=== PATIENT | female | born 1985 | race Caucasian/White ===

== ENCOUNTER 2017-10-26 13:45 | Emergency (ER) | payer OTHER ==
[~2017-10-26] VITALS: Ht 162.6 cm; Wt 112.1 kg
[2017-10-26 14:34] LABS: BASO % 1 % (0-3); EOS % 1 % (0-3); HEMATOCRIT 37.8 % (36.0-47.0); HEMOGLOBIN 12.3 g/dL (12.0-15.5); LYMPH # 1.2 x10^3/uL (1.0-4.8); LYMPH % 29 % (24-48); MEAN CORPUSCULAR HEMOGLOBIN 28 pg (25-35); MEAN CORPUSCULAR HGB CONC 33 g/dL (31-37); MEAN CORPUSCULAR VOLUME 86 fL (79-100); MONO % 11 % (0-9); NEUT % 58 % (31-73); PLATELET COUNT 228 x10^3/uL (140-400); RED BLOOD COUNT 4.41 x10^6/uL (3.50-5.40)
[2017-10-26 14:51] LABS: NEG OBC SER NEG; POS OBC SER POS
[2017-10-26 15:01] LABS: CREATININE 0.7 mg/dL (0.6-1.0); POTASSIUM 3.6 mmol/L (3.5-5.1)
[2017-10-26 15:07] LABS: ALBUMIN 3.4 g/dL (3.4-5.0); ALBUMIN/GLOBULIN RATIO 0.9 (1.0-1.7); TOTAL BILIRUBIN 0.1 mg/dL (0.2-1.0); TOTAL PROTEIN 7.3 g/dL (6.4-8.2)
[2017-10-26 15:30] VITALS: BP 110/68
[2017-10-26] MEDS ORDERED: IOHEXOL 300 MG/ML 100ML VIAL. IV ONE (15:45)
[2017-10-26] MEDS ORDERED: CONTRAST GIVEN MC PRN (15:45)
--- NOTE | 2017-10-26 15:53 | PHYS DOC ---
Past Medical History Past Medical History: Other Additional Past Medical Histor: morbid obesity Past Surgical History: Other Additional Past Surgical Histo: gastric bypass Alcohol Use: None Drug Use: None Adult General Chief Complaint Chief Complaint: ABDOMINAL PAIN HPI HPI Patient is a 32 year old female with history of gastric bypass 3 years ago presents with left upper quadrant abdominal pain over the area of surgical scar. Pain is sharp in is dependent upon position. Symptoms are worse when lying supine, coughing, bending over and lifting. Today while at work, the patient was bending over and felt sharp intense pain lasting for 20-30 minutes. Pain gradually improved prior to ED arrival. Patient denies nausea, vomiting, constipation or diarrhea. Patient has been evaluated by her primary care physician who told her she suspected hernia. Patient has not yet followed up with her surgeon. Patient also reports recent nasal congestion. Patient denies shortness of breath, fever chills. No acute symptoms or complaints. [] Review of Systems Review of Systems Review symptoms as per history of present illness. All other review symptoms are negative. All other systems were reviewed and found to be within normal limits, except as documented in this note. Current Medications Current Medications Current Medications Medications (Trade) Dose Ordered Sig/Paul Start Time Stop Time Status Last Admin Dose Admin Info (Do NOT chart on this entry -- for MONITORING) 1 each PRN DAILY PRN 10/26/17 15:45 10/28/17 15:44 Iohexol (Omnipaque 300 Mg/ml) 75 ml 1X ONCE 10/26/17 15:45 10/26/17 15:46 DC Allergies Allergies Allergies Coded Allergies Type Severity Reaction Last Updated Verified Penicillins Allergy Intermediate hives 10/26/17 Yes Physical Exam Physical Exam Constitutional: Well developed, well nourished, no acute distress, non-toxic appearance. [] HENT: Normocephalic, atraumatic, bilateral external ears normal, oropharynx moist, no oral exudates, nose normal. [] Eyes: PERRLA, EOMI, conjunctiva normal, no discharge. [] Neck: Normal range of motion, no tenderness, supple, no stridor. [] Cardiovascular:Heart rate regular rhythm, no murmur [] Lungs & Thorax: Bilateral breath sounds clear to auscultation [] Abdomen: Bowel sounds normal, soft, no tenderness, pain located over left upper quadrant surgical scar. No palpable hernia appreciated.[] Extremities: No tenderness, no cyanosis, no clubbing, ROM intact, no edema. [] Neurologic: Alert and oriented X 3, normal motor function, normal sensory function, no focal deficits noted. [] Psychologic: Affect normal, judgement normal, mood normal. [] Current Patient Data Vital Signs Vital Signs Date Time Temp Pulse Resp B/P (MAP) Pulse Ox O2 Delivery O2 Flow Rate FiO2 10/26/17 14:03 98.9 76 20 102/61 (75) 100 Room Air 98.9 Lab Values Laboratory Tests Test 10/26/17 14:18 White Blood Count 4.0 x10^3/uL (4.0-11.0) Red Blood Count 4.41 x10^6/uL (3.50-5.40) Hemoglobin 12.3 g/dL (12.0-15.5) Hematocrit 37.8 % (36.0-47.0) Mean Corpuscular Volume 86 fL (79-100) Mean Corpuscular Hemoglobin 28 pg (25-35) Mean Corpuscular Hemoglobin Concent 33 g/dL (31-37) Red Cell Distribution Width 14.0 % (11.5-14.5) Platelet Count 228 x10^3/uL (140-400) Neutrophils (%) (Auto) 58 % (31-73) Lymphocytes (%) (Auto) 29 % (24-48) Monocytes (%) (Auto) 11 % (0-9) H Eosinophils (%) (Auto) 1 % (0-3) Basophils (%) (Auto) 1 % (0-3) Neutrophils # (Auto) 2.3 x10^3uL (1.8-7.7) Lymphocytes # (Auto) 1.2 x10^3/uL (1.0-4.8) Monocytes # (Auto) 0.5 x10^3/uL (0.0-1.1) Eosinophils # (Auto) 0.0 x10^3/uL (0.0-0.7) Basophils # (Auto) 0.0 x10^3/uL (0.0-0.2) Sodium Level 140 mmol/L (136-145) Potassium Level 3.6 mmol/L (3.5-5.1) Chloride Level 103 mmol/L (98-107) Carbon Dioxide Level 24 mmol/L (21-32) Anion Gap 13 (6-14) Blood Urea Nitrogen 9 mg/dL (7-20) Creatinine 0.7 mg/dL (0.6-1.0) Estimated GFR (Cockcroft-Gault) 97.0 BUN/Creatinine Ratio 13 (6-20) Glucose Level 127 mg/dL (70-99) H Calcium Level 8.0 mg/dL (8.5-10.1) L Total Bilirubin 0.1 mg/dL (0.2-1.0) L Aspartate Amino Transferase (AST) 21 U/L (15-37) Alanine Aminotransferase (ALT) 21 U/L (14-59) Alkaline Phosphatase 76 U/L (46-116) Total Protein 7.3 g/dL (6.4-8.2) Albumin 3.4 g/dL (3.4-5.0) Albumin/Globulin Ratio 0.9 (1.0-1.7) L Serum Test, Qualitative Negative (NEG) Laboratory Tests 10/26/17 14:18 Laboratory Tests 10/26/17 14:18 EKG EKG [] Radiology/Procedures Radiology/Procedures [] Course & Med Decision Making Course & Med Decision Making Pertinent Labs and Imaging studies reviewed. (See chart for details) [No appreciated incarcerated hernia in the emergency department. Exam is benign on reevaluation. Pain resolved. Lab work reviewed. Suspect abdominal pain related to scar tissue versus hernia. Patient also has URI symptoms. Will treat with URI with instructions to follow-up with surgeon for repeat evaluation. Return precautions reviewed. Patient verbalizes understanding agreement discharge instructions prior to departure.] Dragon Disclaimer Dragon Disclaimer This electronic medical record was generated, in whole or in part, using a voice recognition dictation system. Departure Departure Impression: Primary Impression: Abdominal pain Additional Impression: Bronchitis Disposition: 01 HOME, SELF-CARE Condition: GOOD Patient Instructions: Bronchitis, [id number], Abdominal Pain (Nonspecific) Additional Instructions: You were evaluated in the emergency department for abdominal pain and cough. Lab work was performed and is nondiagnostic. Your abdominal pain may be caused from scar tissue or hernia related to previous surgery. Please take Tylenol for pain and follow-up with your surgeon who performed your gastric bypass. Take antibiotics as directed. In the meantime if you develop new or worsening symptoms, return to the ED. Scripts No Active Prescriptions or Reported Meds Problem Qualifiers NITIN PETER DO Oct 26, 2017 15:53
== END 2017-10-26 15:56 | disposition home or self-care (01) ==
LOC: ER 13:45
DX: J40 Bronchitis, not specified as acute or chronic (principal); R10.12 Left upper quadrant pain; Z98.84 Bariatric surgery status; Z88.0 Allergy status to penicillin; E66.01 Morbid (severe) obesity due to excess calories; Z68.41 Body mass index [BMI] 40.0-44.9, adult
CPT/HCPCS: 36415; 80053; 84703; 85025; 99284

== ENCOUNTER 2018-04-06 14:48 | Emergency (ER) | payer OTHER ==
[2018-04-07 11:48] LABS: NEGATIVE OBC STREP NEG; POSITIVE OBC STREP POS
== END 2018-04-06 15:51 | disposition home or self-care (01) ==
LOC: ER 14:48
DX: J02.0 Streptococcal pharyngitis (principal); Z88.0 Allergy status to penicillin
CPT/HCPCS: 87880; 99283

== ENCOUNTER → 2018-07-23 | Outpatient (CLI) | payer OTHER ==
[2018-04-06 15:02] VITALS: BP 135/74
[~2018-07-23] MED LIST: CEPH-264 PO
== END | disposition home or self-care (01) ==
LOC: LAB 13:52
PROVIDERS: ATTEND Physician Assistant
DX: O87.1 Deep phlebothrombosis in the puerperium (principal); E66.01 Morbid (severe) obesity due to excess calories; Z68.41 Body mass index [BMI] 40.0-44.9, adult; Z88.0 Allergy status to penicillin
CPT/HCPCS: 36415

== ENCOUNTER 2019-08-01 19:57 | Emergency (ER) | payer MEDICAID, OTHER ==
[~2019-08-01] VITALS: Ht 162.6 cm; Wt 111.1 kg
[2019-08-01 20:14] VITALS: BP 118/78
[2019-08-01] MEDS ORDERED: ACETAMINOPHEN 500 MG TABLET PO STA (20:31)
--- NOTE | 2019-08-01 20:38 | PHYS DOC ---
Past Medical History Past Medical History: No Pertinent History Additional Past Medical Histor: morbid obesity Past Surgical History: Gastric Bypass Additional Past Surgical Histo: gastric bypass Alcohol Use: None Drug Use: None Adult General Chief Complaint Chief Complaint: FOOT INJURY PAIN [facility] HPI Patient is a 34 year old female that presents with left foot pain and ankle pain has been ongoing for year but states is gotten worse lately. The patient states it swells and is painful after a long day. She states it throbs and her pain as 9 out of 10 in severity and sharp and throbbing. The patient states she took 500 mg Tylenol home before arrival. She has a history of gastric bypass is was unable to have ibuprofen. Review of Systems Review of Systems Constitutional: Denies fever or chills [] Eyes: Denies change in visual acuity, redness, or eye pain [] HENT: Denies nasal congestion or sore throat [] Respiratory: Denies cough or shortness of breath [] Cardiovascular: No additional information not addressed in HPI [] GI: Denies abdominal pain, nausea, vomiting, bloody stools or diarrhea [] : Denies dysuria or hematuria [] Musculoskeletal: Reports left foot and ankle pain. Integument: Denies rash or skin lesions [] Neurologic: Denies headache, focal weakness or sensory changes [] Endocrine: Denies polyuria or polydipsia [] Complete systems were reviewed and found to be within normal limits, except as documented in this note. Current Medications Current Medications Current Medications Medications (Trade) Dose Ordered Sig/Paul Start Time Stop Time Status Last Admin Dose Admin Acetaminophen (Tylenol) 500 mg 1X STAT 08/01/19 20:31 08/01/19 20:34 DC 08/01/19 20:47 500 MG Allergies Allergies Allergies Coded Allergies Type Severity Reaction Last Updated Verified Penicillins Allergy Intermediate hives 10/26/17 Yes Physical Exam Physical Exam Constitutional: Well developed, well nourished, no acute distress, non-toxic appearance. [] HENT: Normocephalic, atraumatic, bilateral external ears normal, oropharynx moist, no oral exudates, nose normal. [] Eyes: PERRLA, EOMI, conjunctiva normal, no discharge. [] Neck: Normal range of motion, no tenderness, supple, no stridor. [] Skin: Warm, dry, no erythema, no rash. [] Back: No tenderness, no CVA tenderness. [] Extremities: Tenderness to left foot/ankle, mild edema. [] Neurologic: Alert and oriented X 3, normal motor function, normal sensory function, no focal deficits noted. [] Psychologic: Affect normal, judgement normal, mood normal. [] Current Patient Data Vital Signs Vital Signs Date Time Temp Pulse Resp B/P (MAP) Pulse Ox O2 Delivery O2 Flow Rate FiO2 08/01/19 20:14 98.4 73 18 118/78 (91) 100 Room Air 98.4 EKG EKG [] Radiology/Procedures Radiology/Procedures [][facility] [address] [place] [address] IMAGING REPORT Signed PATIENT: CHRISSY WATKINS MACCOUNT: [id number] : 1985 LOCATION: ER AGE: 34 SEX: F EXAM STATUS: REG ER ORD. PHYSICIAN: LANDON SPARKS APRN REASON: chronic pain/tenderness to left foot, ankle PROCEDURE: ANKLE LEFT 3V 3 views left foot and 3 views left ankle dated 08/01/2019. No comparison available. CLINICAL INDICATION: Pain and tenderness. FINDINGS: 3 views left ankle show normal bony alignment. No displaced fracture. No acute osseous or articular abnormality. Talar dome is intact. There is mild soft tissue swelling. 3 views left foot show normal bony alignment. No displaced fracture. No acute osseous or articular abnormality. No periostitis or bone destruction. IMPRESSION: Soft tissue swelling with no apparent underlying acute bony abnormality. Electronically signed by: Landon Joy MD (08/01/2019 9:06 PM) [facility] DICTATED and SIGNED BY: LANDON JOY MD DATE: 08/01/192105 Course & Med Decision Making Course & Med Decision Making Pertinent Labs and Imaging studies reviewed. (See chart for details) Will get imaging. No acute fracture or dislocation. Will d/c home. Dragon Disclaimer Dragon Disclaimer This electronic medical record was generated, in whole or in part, using a voice recognition dictation system. Departure Departure Impression: Primary Impression: Left foot pain Disposition: 01 HOME, SELF-CARE Condition: STABLE Referrals: KRYSTAL CAMPOS MD (PCP) Additional Instructions: Thank you for visiting [facility]. We appreciate you trusting us with your care. If any additional problems come up don't hesitate to return to visit us. Please follow up with your primary care provider so they can plan additional care if needed and know about the problem that you had. If symptoms worsen come back to the Emergency Department. Any concerning symptoms that start such as chest pain, shortness of air, weakness or numbness on one side of the body, running high fevers or any other concerning symptoms return to the ER. Please follow-up with primary care doctor regarding this complaint. LANDON SPARKS APRN Aug 01, 2019 20:38
--- NOTE | 2019-08-01 21:09 | RAD ---
3 views left foot and 3 views left ankle dated 08/01/2019. No comparison available. CLINICAL INDICATION: Pain and tenderness. FINDINGS: 3 views left ankle show normal bony alignment. No displaced fracture. No acute osseous or articular abnormality. Talar dome is intact. There is mild soft tissue swelling. 3 views left foot show normal bony alignment. No displaced fracture. No acute osseous or articular abnormality. No periostitis or bone destruction. IMPRESSION: Soft tissue swelling with no apparent underlying acute bony abnormality. Electronically signed by: Landon Joy MD (08/01/2019 9:06 PM) [facility]
--- NOTE | 2019-08-01 21:09 | RAD ---
3 views left foot and 3 views left ankle dated 08/01/2019. No comparison available. CLINICAL INDICATION: Pain and tenderness. FINDINGS: 3 views left ankle show normal bony alignment. No displaced fracture. No acute osseous or articular abnormality. Talar dome is intact. There is mild soft tissue swelling. 3 views left foot show normal bony alignment. No displaced fracture. No acute osseous or articular abnormality. No periostitis or bone destruction. IMPRESSION: Soft tissue swelling with no apparent underlying acute bony abnormality. Electronically signed by: Landon Joy MD (08/01/2019 9:06 PM) [facility]
== END 2019-08-01 21:47 | disposition home or self-care (01) ==
LOC: ER 19:57
DX: M25.572 Pain in left ankle and joints of left foot (principal); E66.01 Morbid (severe) obesity due to excess calories; Z68.41 Body mass index [BMI] 40.0-44.9, adult
CPT/HCPCS: 73610; 73630; 99284